=== PATIENT | female | born 1945 | race Asian ===

== ENCOUNTER 2019-03-01 09:35 | Emergency (ER) | payer OTHER ==
[2019-03-01] MEDS: DIPHTH/TET/ACEL PERTUSS (ADULT) 0.5 ML VIAL IM* (10:14)
== END 2019-03-01 10:45 | disposition home or self-care (01) ==
LOC: FTE 09:35
DX: S00.81XA Abrasion of other part of head, initial encounter (principal); I10 Essential (primary) hypertension; W06.XXXA Fall from bed, initial encounter; Y92.9 Unspecified place or not applicable
CPT/HCPCS: 70450; 90471; 90715; 99284-25